=== PATIENT | female | born 1975 | race Caucasian/White ===

== ENCOUNTER 2016-08-01 14:46 | Outpatient (CLI) | payer OTHER | END 2016-08-01 14:47 | disposition home or self-care (01) | LOC: SC 14:46 | PROVIDERS: ATTEND Internal Medicine Pulmonary Disease | DX: G47.8 Other sleep disorders (principal); G47.10 Hypersomnia, unspecified; R06.83 Snoring | CPT/HCPCS: 99203; 99212 ==

== ENCOUNTER 2016-09-13 14:21 | Outpatient (CLI) | payer OTHER ==
--- NOTE | 2016-09-14 09:27 | XRAY Report ---
THREE VIEW RIGHT FOOT: 09/13/2016 CLINICAL INDICATION: Pain, edema. AP, lateral, oblique views of the right foot demonstrate no evidence of fracture or dislocation. The joint spaces are preserved. No radiopaque foreign body is seen in the soft tissues. IMPRESSION: NORMAL RIGHT FOOT. JOB #: [id number] EXT JOB #:[id number]
== END 2016-09-13 14:22 | disposition home or self-care (01) ==
LOC: DI 14:21
PROVIDERS: ATTEND Podiatrist
DX: M79.671 Pain in right foot (principal); R60.0 Localized edema

== ENCOUNTER 2016-10-09 22:06 | Outpatient (CLI) | payer OTHER | END 2016-10-09 22:07 | disposition home or self-care (01) | LOC: SC 22:06 | PROVIDERS: ATTEND Internal Medicine Pulmonary Disease | DX: G47.9 Sleep disorder, unspecified (principal) | CPT/HCPCS: 95810 ==

== ENCOUNTER 2016-10-29 14:14 | Outpatient (CLI) | payer OTHER | END 2016-10-29 14:15 | disposition home or self-care (01) | LOC: SC 14:14 | PROVIDERS: ATTEND Nurse Practitioner Family | DX: G47.9 Sleep disorder, unspecified (principal) | CPT/HCPCS: 99212; 99214 ==

== ENCOUNTER 2019-07-22 17:12 | Outpatient (CLI) | payer OTHER ==
--- NOTE | 2019-07-23 09:50 | XRAY Report ---
Reason: Pain in left fingers/wrist Procedure Date: 07/22/2019 Accession Number: [id number] / [id number] Procedure: XR - Wrist 3 View LT CPT Code: Final Report FULL RESULT: EXAM: LEFT HAND AND WRIST RADIOGRAPHY EXAM DATE: 07/22/2019 05:38 PM. CLINICAL HISTORY: Pain in left fingers/wrist. COMPARISON: None. TECHNIQUE: 3 views of the left hand and 3 views of the left wrist. FINDINGS: Bones: Normal. No fractures or bone lesions. Joints: Normal. No subluxations. Soft Tissues: Normal. No soft tissue swelling. IMPRESSION: Normal hand and wrist radiography. [facility]
--- NOTE | 2019-07-23 09:50 | XRAY Report ---
Reason: Pain in left fingers/wrist Procedure Date: 07/22/2019 Accession Number: [id number] / [id number] Procedure: XR - Hand 3 View LT CPT Code: Final Report FULL RESULT: EXAM: LEFT HAND AND WRIST RADIOGRAPHY EXAM DATE: 07/22/2019 05:38 PM. CLINICAL HISTORY: Pain in left fingers/wrist. COMPARISON: None. TECHNIQUE: 3 views of the left hand and 3 views of the left wrist. FINDINGS: Bones: Normal. No fractures or bone lesions. Joints: Normal. No subluxations. Soft Tissues: Normal. No soft tissue swelling. IMPRESSION: Normal hand and wrist radiography. [facility]
== END 2019-07-22 17:13 | disposition home or self-care (01) ==
LOC: DI 17:12
PROVIDERS: ATTEND Nurse Practitioner Family
DX: M79.645 Pain in left finger(s) (principal)

== ENCOUNTER 2020-02-07 15:40 | Outpatient (CLI) | payer MEDICAID | END 2020-02-07 15:41 | disposition home or self-care (01) | LOC: COV 15:40 | PROVIDERS: ATTEND Family Medicine | DX: Z20.828 Contact with and (suspected) exposure to other viral communicable diseases (principal) ==

== ENCOUNTER 2021-06-13 17:04 | Outpatient (CLI) | payer BC | END 2021-06-13 17:05 | disposition EMS.NT | LOC: EMS 17:04 | DX: R07.89 Other chest pain (principal); M25.519 Pain in unspecified shoulder; V49.9XXA Car occupant (driver) (passenger) injured in unspecified traffic accident, initial encounter; Y92.413 State road as the place of occurrence of the external cause ==

== ENCOUNTER 2021-06-13 19:08 | Emergency (ER) | payer BC, OTHER ==
[2021-06-13] MEDS ORDERED: LIDOCAINE PATCH 5% TOP STA (19:41)
[2021-06-13] MEDS ORDERED: ACETAMINOPHEN 325 MG TABLET PO STA (19:42)
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
[2021-06-13] MEDS ORDERED: oxyCODONE/ACET 5/325 Prepack 4 PO STA (21:21)
[2021-06-13 21:39] VITALS: BP 138/79
== END 2021-06-13 21:38 | disposition home or self-care (01) ==
LOC: ED 19:08
DX: S29.011A Strain of muscle and tendon of front wall of thorax, initial encounter (principal); S16.1XXA Strain of muscle, fascia and tendon at neck level, initial encounter; V43.52XA Car driver injured in collision with other type car in traffic accident, initial encounter; Y93.89 Activity, other specified; Y92.410 Unspecified street and highway as the place of occurrence of the external cause
CPT/HCPCS: 71045; 99282; 99283; A9270

== ENCOUNTER 2022-05-24 09:42 | Outpatient (CLI) | payer OTHER ==
--- NOTE | 2022-05-24 18:03 | MRI Report ---
PROCEDURE: LUMBAR SPINE WO INDICATIONS: PARESIS OF LOWER EXTREMITY TECHNIQUE: Noncontrast sagittal T1 spin echo and T2 fast echo, sagittal STIR, axial T1 and T2 fast spin echo thr ough the lumbar spine. In cases with scoliosis, additional coronal T2 fast spin echo may be performe d. COMPARISON: 02/21/2014 FINDINGS: Image quality: Excellent. Alignment and Curvature: There is normal bony alignment. Bone Marrow: Marrow is of normal overall signal. No acute vertebral body compression fractures. Spinal Cord: Conus medullaris terminates at the L1 level. Visualized cord demonstrates normal signa l and size. Paraspinous Soft Tissues: No paravertebral masses. T12-L1: Normal in appearance. L1-L2: The disc height is well-preserved. There is loss of disc signal seen. Reactive marrow endp late changes are seen, which are hyperintense on T1-weighted and T2-weighted imaging, without signifi cant increased STIR signal. These imaging findings are most consistent with fatty metaplasia (Modic t ype 2 change). No significant disc bulge is seen. No neural foraminal narrowing is seen. No central c anal narrowing. L2-L3: The disc height is well-preserved. There is loss of disc signal seen. No significant disc b ulge is seen. Mild facet hypertrophy is seen. No neuroforaminal narrowing or central canal narrowi ng can be seen. L3-L4: The disc height is well-preserved. There is loss of disc signal seen. No significant disc bu lge is seen. No neural foraminal narrowing or central canal narrowing can be seen. L4-L5: Level within normal limits. L5-S1: The disc height and disc signal are well preserved. Mild facet hypertrophy is seen. Extensive stable perineural cysts can be seen within the sacrum, which are centered at the S2 level. IMPRESSION: Mild lumbar spine degenerative changes are seen, which are overall progressed compared t 2017. 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 Reviewed by: Ronald Cline MD on 05/24/2022 5:01 PM SURINDER Approved by: Ronald Cline MD on 05/24/2022 5:01 PM SURINDER Station ID: [id number]
== END 2022-05-24 09:43 | disposition home or self-care (01) ==
LOC: DI 09:42
PROVIDERS: ATTEND Physician Assistant
DX: G83.11 Monoplegia of lower limb affecting right dominant side (principal); M47.816 Spondylosis without myelopathy or radiculopathy, lumbar region; G96.191 Perineural cyst